=== PATIENT | male | born 1965 | race Caucasian/White ===

== ENCOUNTER 2021-07-17 05:52 | Observation (INO) ==
[2021-07-17] MEDS ORDERED: Acetaminophen 325 MG TABLET PO PRN (07:51)
[2021-07-17] MEDS ORDERED: Naloxone 0.4 MG/ML INJ IVP PRN (07:51)
[2021-07-17] MEDS ORDERED: Ondansetron 4 MG/2 ML VIAL IVP PRN (07:51)
[2021-07-17] MEDS ORDERED: Perflutren Lipid Microsphere 1.3 ML in 0.9 % Sodium Chloride 8.7 ML IVP PRN (08:08)
[2021-07-17 08:48] LABS: BUN/Creatinine Ratio 18 (6-26); Blood Urea Nitrogen 15 mg/dL (6-20); Carbon Dioxide 27 mEq/L (23-29); Chloride 105 mEq/L (98-107); Glucose 108 mg/dL (70-105); Magnesium 1.8 mg/dL (1.6-2.6); Osmolality,Calculated 291 (280-300); Potassium 3.8 mEq/L (3.5-5.1); Sodium 140 mEq/L (136-145); Troponin I < 0.03 ng/mL (< 0.04); eGFR For African Americans > 60 (> 60); eGFR For Non-African Americans > 60 (> 60)
[2021-07-17 09:01] LABS: Thyroid Stimulating Hormone 0.634 mcIU/mL (0.340-5.600)
[2021-07-18] MEDS ORDERED: *HR* Enoxaparin 40 MG/0.4 ML SYRINGE SQ SCH (06:00)
[2021-07-18 06:12] LABS: Basophils % 0.3 %; Eosinophils # 0.2 K/mcL (0.0-0.6); Eosinophils % 1.6 %; Hematocrit 43.4 % (37.5-50.1); Immature Granulocytes % 0.2 % (0-4); Lymphocytes # 2.6 K/mcL (0.6-4.6); Mean Corpuscular HGB Conc 33.2 g/dL (31.6-35.5); Mean Corpuscular Hemoglobin 32.7 pg (28.0-33.3); Mean Corpuscular Volume 98.4 fL (83.0-100.0); Mean Platelet Volume 9.5 fL (9.4-12.4); Monocytes # 0.7 K/mcL (0.0-1.3); Monocytes % 6.4 %; Neutrophils # 6.8 K/mcL (1.6-8.9); Platelet Count 261 K/mcL (140-400); Red Blood Count 4.41 M/mcL (4.19-5.50); Red Cell Distribution Width 12.4 % (11.5-14.5); Segmented Neutrophils % 66.5 %; White Blood Count 10.2 K/mcL (4.3-11.1)
[2021-07-18 06:13] LABS: Hemoglobin 14.4 g/dL (12.9-16.9)
[2021-07-18 06:28] LABS: BUN/Creatinine Ratio 16 (6-26); Blood Urea Nitrogen 14 mg/dL (6-20); Calcium 9.4 mg/dL (8.6-10.3); Carbon Dioxide 25 mEq/L (23-29); Chloride 104 mEq/L (98-107); Chol/HDL Ratio 2.9 (0-4.9); Cholesterol 132 mg/dL (< 200); Glucose 88 mg/dL (70-105); HDL Cholesterol 46 mg/dL (40-59); LDL Cholesterol,Calculated 71 mg/dL (< 100); Magnesium 1.9 mg/dL (1.6-2.6); Osmolality,Calculated 288 (280-300); Sodium 139 mEq/L (136-145); Triglycerides 77 mg/dL (< 150); eGFR For African Americans > 60 (> 60); eGFR For Non-African Americans > 60 (> 60)
[2021-07-18 09:07] LABS: Estimated Average Glucose 117 mg/dl; Hemoglobin A1C 5.7 %
[2021-07-18 14:46] VITALS: BP 98/58; PULSE 64; TEMP 97.9; O2SAT 96
== END 2021-07-18 17:18 | disposition home or self-care (01) ==
LOC: 3BNU → SUATTDRO 07:37
PROVIDERS: ADMIT Internal Medicine; ATTEND General Practice